=== PATIENT | female | born 2005 | race Two or more races ===

== ENCOUNTER 2024-12-01 14:42 | Emergency (ER) | payer MEDICAID ==
[~2024-12-01] VITALS: Ht 162.6 cm; Wt 74.2 kg
[2024-12-01 14:54] VITALS: BP 128/89; PULSE 74; RESP 16; TEMP 98.2; O2SAT 98
--- NOTE | 2024-12-01 15:22 | Physician Documentation ---
History of Present Illness ~ Chief Complaint: Rib pain Stated Complaint: RIB PAIN Time Seen by MD: 15:27 HPI This is a 19-year-old female who presents with one-week of right lower chest wall pain after a fall from a skateboard. Allergies: Coded Allergies: No Known Allergies (Unverified , 12/01/24) Active Prescriptions See Medication Reconciliation Form. Medication Reconciliation Scheduled Ibuprofen (Ibuprofen), 1 TAB PO Q8H Lidocaine (Lidoderm), 1 PATCH TOP DAILY Past Medical History Past Medical History: No Pertinent History Review of Systems ROS As stated above in the HPI, otherwise all systems are reviewed and negative. Physical Exam Vital Signs: Temperature: 98.2, Source: Temporal, Heart Rate: 74, Respiratory Rate: 16, BP: 128/89, Pulse Oximetry: 98, Weight: 74.200 Oxygen Flow Rate: 0 Physical Exam VITALS: Reviewed and as above. GENERAL: Alert, nontoxic appearing, no apparent distress. RESPIRATORY: No increased work of breathing, no respiratory distress, speaking in full clear sentences, clear lung sounds in all lanza CHEST: Right lower lateral and anterior chest wall tender to palpation, no paradoxical movement, no crepitus, no deformity CV: Regular rate and rhythm no murmur BACK: No midline spinal tenderness Progress Results/Orders Results/Orders Orders - RAMILA AGUSTIN,Unilat (12/01/24 16:24) Completed Orders - RAMILA AGUSTIN,Unilat (12/01/24 16:24) Ketorolac Trometh 15mg/Ml Vial (Toradol (12/01/24 15:55) Lidocaine 5% Patch (Lidoderm 5% Patch) (12/01/24 16:50) Vital Signs 12/01/24 14:54 Temp 98.2 Pulse 74 Resp 16 B/P (MAP) 128/89 Pulse Ox 98 O2 Flow Rate 0 Medical Decision Making Findings MSE performed in triage and patient returned to ED lobby by nursing staff to await available ED room This 19-year-old female presented with right lower chest wall pain for the past week after a fall on her skateboard, physical exam did not demonstrate evidence of flail chest though was positive for tenderness to the chest wall, x-ray did not demonstrate evidence of rib fractures or pneumothorax. Patient was otherwise well-appearing with remainder of physical exam benign and no other injuries reported or noted on exam. Patient was medicated for pain. Patient is appropriate for outpatient follow up. Patient provided home care instructions, follow up instructions, and return to care precautions which he verbalized understanding of. Differential Dx:Considerations: Include: Chest wall contusion, Flail chest, Pneumothorax, Pulmonary contusion, Rib fracture, Tension pneumothorax Departure Time of Disposition: 16:47 Disposition: 01 HOME / SELF CARE / HOMELESS Impression: Primary Impression: Rib pain Condition: Improved Discharge Instructions: Rib Contusion Additional Instructions: Starting 12 hours from now you may use the prescribed ibuprofen, do not take the medication prior to that as you received a Toradol injection in the emergency department which we will replace his medication. You may also take Tylenol as needed with the ibuprofen as directed by the [id number] packaging. Please follow up with your primary care provider in the next few days. Please return to the emergency department for any new or worsening concerning symptoms. Referrals: NO PRIMARY CARE PROVIDER (PCP) Prescriptions Lidocaine (Lidoderm) 5 % Adh..patch 1 PATCH TOP DAILY for 10 Days, #10 PATCH 0 Refills may wear up to 12 hours Prov: RAMILA AGUSTIN 12/01/24 Ibuprofen (Ibuprofen) 800 Mg Tablet 1 TAB PO Q8H for pain for 10 Days, #30 TAB 0 Refills Prov: RAMILA AGUSTIN 12/01/24 Education Educated: Patient Educated regarding: diagnosis, treatment, prognosis, need for follow up Signature Scribe Signature: No scribe Attestation: The note accurately reflects work and decisions made by me.EDVIN Galindo 12/02/24 02:36 RAMILA AGUSTIN [facility] Dec 01, 2024 15:22
[2024-12-01] MEDS: ketorolac trometh 15mg/ml vial 15 MG/ML ML IM ONE (15:55)
--- NOTE | 2024-12-01 16:40 | RADIOLOGY REPORT ---
CHEST RADIOGRAPH Indication: Right rib pain post fall Technique: Single frontal view of the chest was obtained Comparison: None FINDINGS: Lines and Tubes: None Lungs: No focal consolidation. Pleura: No effusion. No pneumothorax. Cardiomediastinal contours: Unremarkable Bones: No acute osseous abnormality. IMPRESSION: No acute cardiopulmonary disease. No acute rib fractures.
[2024-12-01] MEDS ORDERED: IBUP-1986 PO (16:47)
[2024-12-01] MEDS ORDERED: LIDO-52 TOP (16:47)
== END 2024-12-01 17:08 | disposition home or self-care (01) ==
LOC: ER 14:43
DX: R07.81 Pleurodynia (principal); V00.131A Fall from skateboard, initial encounter; Y93.51 Activity, roller skating (inline) and skateboarding; Y92.89 Other specified places as the place of occurrence of the external cause; Y99.8 Other external cause status
CPT/HCPCS: 71100; 99284